=== PATIENT | male | born 2000 | race Two or more races ===

== ENCOUNTER 2021-12-29 22:10 | Emergency (ER) | payer OTHER ==
[~2021-12-29] VITALS: Ht 172.7 cm; Wt 89.8 kg
[2021-12-30] MEDS ORDERED: DICLOFENAC SODI75 MG PO (01:19)
[2021-12-30] MEDS ORDERED: ZITHROMAX500 MG PO (01:19)
== END 2021-12-30 01:26 | disposition home or self-care (01) ==
LOC: ER 22:10
DX: N50.812 Left testicular pain (principal); Z20.822 Contact with and (suspected) exposure to COVID-19